=== PATIENT | male | born 1995 | race Caucasian/White ===

== ENCOUNTER 2020-05-22 14:53 | Outpatient (RCR) | payer OTHER, SELFPAY ==
--- NOTE | 2020-05-22 16:17 | PTOPEVAL ---
Thank you for referring Shelton Silva to [facility] The patient is scheduled to be seen for therapy? ___2_x/week for 10 visits. Please review, sign, date and return this plan of care ESA. I agree with and certify that the following plan of care is medically necessary. Referring Physician Date Admitting Provider: Attending Provider: Nancy Fine, MARKETING PRODUCTION COORDINATOR-BC Referring Provider: *PT Outpatient Evaluation Start: 05/22/20 15:07 Freq: Status: Active Protocol: Document 05/22/20 15:07 ACR (Rec: 05/22/20 16:16 ACR [id number]) Evaluation Information Problem Diagnosis low back pain Onset 04/02/20 Subjective Information Patient states for a bit he Query Text:As Reported By Patient/ has been going to a Family chiropractor and a MD for his back. He states his back pain has been for a few years and he has been working through it , but it has gotten so severe that it is effecting his work. Patient states that when his back pain flares up he is unable to do anything and had to go to the hospital. He states the most recent flare up was a couple weeks ago where they give him a shot, valium, and lidocaine shot. He started going to the chiropractor 6 weeks ago and he states that sometimes it feels better, but other times it really bothers him. He states his pain is consistent. He states that he has difficulty with getting up, laying down, prolonged walking /standing, lifting, and stairs . The patient states that he has anxiety so when his back flares up he loses his breath and has a panic attack. Patient states he has always worked two jobs and that is why he has tried to ignore the pain the past couple of years . He states his pain is in the shoulder blades, neck, and low back. Prior Level of Function Activity Level (Last 3 Months) Occ
--- NOTE | 2020-07-05 17:22 | PCPTNOTE ---
Patient is a 25 year old male that participated in 4 visits for back pain. The patient voiced that he would not like to continue therapy at this time. Please refer to most recent treatment not for discharge status. Thank you, Prerna Alcazar, PT, DPT
== END 2020-06-12 13:46 | disposition home or self-care (01) ==
LOC: CHSPT 14:53
PROVIDERS: PCP Nurse Practitioner; Visit Provider Nurse Practitioner
DX: M54.9 Dorsalgia, unspecified (principal)
CPT/HCPCS: 97014; 97110; 97161; G0283

== ENCOUNTER 2020-08-22 13:43 | Emergency (ER) | payer OTHER, SELFPAY ==
--- NOTE | ~2020-08-22 | CT_ITS ---
EXAMINATION: CT abdomen pelvis w con DATE: 08/22/2020 18:16 INDICATION: Dysuria. Increased frequency. TECHNIQUE: Computed tomography (CT) of the abdomen and pelvis was performed with 100 cc intravenous c ontrast. The dose-length product was 345.85 mGy-cm. Automated exposure control and iterative reconstr uction technique were employed. COMPARISON: None. FINDINGS: Lung bases are unremarkable. Heart size normal. No significant pleural or pericardial effus ion. No significant vascular abnormality. No lymphadenopathy. The liver, spleen, pancreas, adrenal gl ands and kidneys are unremarkable. Bladder is present. No free air or free fluid. Gallbladder is pres ent. No free air. Small amount of free fluid in the pelvis. No acute osseous abnormality. IMPRESSION: 1. No acute abdominal abnormality. Reviewed, dictated and finalized at location A.
[2020-08-22 14:37] VITALS: BP 124/59; PULSE 106; RESP 16; TEMP 37.3; O2SAT 100
[2020-08-22 16:07] LABS: Basophils Percent Auto 0.2 % (0.2-1.2); Hematocrit 37.2 % (42.0-52.0); Hemoglobin 12.9 g/dL (14.0-18.0); Immature Granulocyte Absolute 0.11 K/mm3 (0.00-0.031); Immature Granulocyte Percent A 0.6 % (0-0.5); Lymphocytes Absolute Auto 0.47 K/mm3 (0.9-3.2); Lymphocytes Percent Auto 2.6 % (18.3-44.2); Mean Corpuscular HGB Conc 34.7 g/dl (32-36); Mean Corpuscular Hemoglobin 30.3 pg (26-34); Mean Corpuscular Volume 87.3 fl (80-100); Mean Platelet Volume 11.2 fl (7.4-10.4); Monocytes Absolute Auto 1.1 K/mm3 (0.1-0.6); Monocytes Percent Auto 6.1 % (2.6-8.5); Neutrophils Absolute Auto 16.3 K/mm3 (1.3-6.7); Neutrophils Percent Auto 90.5 % (45.5-73.1); Platelet Count Result 126 k/mm3 (150-375); Red Blood Count 4.26 M/mm3 (4.6-6.20); Red Cell Distribution Width 12.3 % (11.5-14.5)
[2020-08-22 16:13] LABS: Add Urine Microscopic? YES; Appearance Urine Clear (Clear); Bacteria Urine Trace /hpf; Bilirubin Urine Negative (Negative); Blood Urine 1+ (Negative); Color Urine Yellow (Yellow); Glucose Urine UA Negative (Negative); Ketones Urine 1+ mg/dL (Negative); Leukocyte Esterase Ur Negative LEU/UL (Negative); Mucus Urine Heavy /lpf; Nitrate Urine Negative (Negative); Protein Urine 1+ mg/dL (Negative); Specific Grav Ur 1.027 (1.001-1.035); Squamous Epithelial Cell Urine Rare /hpf (Few); Urobilinogen Urine Negative mg/dL (<2.0); WBC Urine 0-3 /hpf
[2020-08-22 16:16] LABS: Anion Gap 8 mmol/L (8-16); Blood Urea Nitrogen 8 mg/dL (9-20); Calcium 9.1 mg/dL (8.4-10.2); Carbon Dioxide 24 mmol/L (22-30); Chloride 106 mmol/L (98-107); Estimated CRCL calculation 112 ml/min; Estimated Glomerular Filt Rate > 60; Glucose 101 mg/dL (75-110); Potassium 3.5 mmol/L (3.4-5.0); Sodium 138 mmol/L (137-145)
--- NOTE | 2020-08-22 17:33 | PC.NURSE ---
patient presents with a long list of complaints including abd pain, sore throat, back pain and many other complaints. states was seen at another er yesterday and they didnt do anything for me
[2020-08-22] MEDS: KETOROLAC 30 MG/ML VIAL (*BKC) IV PUSH (17:53)
[2020-08-22] MEDS: SODIUM CHLORIDE 0.9% IV 1,000 ML 999 ML IV CONT (17:54)
--- NOTE | 2020-08-22 18:54 | ED.ABDPAIN ---
HPI - Abdominal Pain General Chief Complaint: Abdominal Pain Stated Complaint: headache, abd pain Time Seen by Provider: 08/22/20 17:19 Source: patient Mode of arrival: ambulatory Limitations: no limitations History of Present Illness HPI narrative: 25-year old with a history of chronic low back pain here with complaints of lower abdominal pain, nausea, diarrhea and dysuria for last few days. Patient states that his symptoms started after eating [place] food. He denies any blood in his stool. Denies any fever or chills. Pertinent past history: none Onset (ago): day(s) (2) Pain Consistency: intermittent Location: RLQ and LLQ Severity: moderate Quality: cramping Radiation: none Exacerbating factors: nothing Relieving factors: nothing Associated symptoms: denies other symptoms Related Data Allergies Allergy/AdvReac Type Severity Reaction Status Date / Time diphenhydramine Allergy Unknown Verified 08/22/20 17:23 [From Benadryl] penicillin G Allergy Unknown Verified 08/22/20 17:23 Review of Systems Review of Systems: All systems reviewed & are unremarkable except as noted in HPI and below Constitutional: Constitutional: Reports no additional constitutional complaints Eyes: Eyes: Reports no additional eye complaints ENT: Reports system reviewed and no additional complaints, except as documented Cardiovascular: Cardiovascular: Reports no additional cardiovascular complaints Respiratory: Respiratory: Reports no additional respiratory complaints Gastrointestinal: Gastrointestinal: Reports as per HPI Musculoskeletal: Musculoskeletal: Reports as per HPI Integumentary/Breasts: Skin/Breast: Reports system reviewed and no additional complaints, except as docu Neurologic: Reports system reviewed and no additional complaints, except as documented PMFSH Social History Social History Gender identity (if verbalized by the patient): Male Exam Narrative: Exam Narrative: GENERAL: Well-appearing, well-nourished, and in no acute distress. HEAD: Normocephalic, atraumatic. EYES: PERRLA and EOMI. ENT: Nares clear, no rhinorrhea or epistaxis. Mucous membranes moist. NECK: Supple. CHEST: Clear to auscultation. No respiratory distress. HEART: Regular rate and rhythm. No murmur heard. Normal peripheral pulses. ABDOMEN: Soft, mild tenderness in the lower abdomen, nondistended, normal active bowel sounds. EXTREMITIES: Normal range of motion. No edema. SKIN: Warm, dry, no rash. NEURO: No focal deficits. Alert and oriented x3. PSYCH: Normal mood and affect. Course Course Emergency Course: Patient was given IV fluids, Toradol for pain. He states this is a lower abdominal pain has resolved however he still has pain in his lower back I discussed lab work and CT findings with the patient. Advised him to take pain medication as required. Vital Signs Vital signs: Vital Signs Temperature 37.3 C 08/22/20 14:37 Pulse Rate 106 H 08/22/20 14:37 Respiratory Rate 16 08/22/20 14:37 Blood Pressure 124/59 L 08/22/20 14:37 Pulse Oximetry 100 08/22/20 14:37 Temperature 37.3 C 08/22/20 14:37 Pulse Rate 106 H 08/22/20 14:37 Respiratory Rate 16 08/22/20 14:37 Blood Pressure 124/59 L 08/22/20 14:37 Pulse Oximetry 100 08/22/20 14:37 MDM - Abdominal Pain Lab Data Result diagrams: 08/22/20 16:01 08/22/20 16:01 Labs: Lab Results 08/22/20 08/22/20 08/22/20 Range/Units 16:01 16:01 16:01 WBC 18.0 H (4.5-10.0) K/mm3 RBC 4.26 L (4.6-6.20) M/mm3 Hgb 12.9 L (14.0-18.0) g/dL Hct 37.2 L (42.0-52.0) % MCV 87.3 (80-100) fl MCH 30.3 (26-34) pg MCHC 34.7 (32-36) g/dl RDW 12.3 (11.5-14.5) % Plt Count 126 L (150-375) k/mm3 MPV 11.2 H (7.4-10.4) fl Immature Gran % (Auto) 0.6 H (0-0.5) % Neut % (Auto) 90.5 H (45.5-73.1) % Lymph % (Auto) 2.6 L (18.3-44.2) % [place] %
[2020-08-22 19:14] VITALS: BP 122/68; PULSE 78; RESP 18; O2SAT 99
== END 2020-08-22 19:15 | disposition home or self-care (01) ==
PROVIDERS: Emergency Medicine; Emergency Provider Family Medicine; PCP Nurse Practitioner
DX: K52.9 Noninfective gastroenteritis and colitis, unspecified (principal)
CPT/HCPCS: 36415; 74177; 80048; 81001; 85025; 96361; 96374; 99284; J1885; J7030; Q9967